=== PATIENT | male | born 1955 ===

== ENCOUNTER 2017-09-09 19:45 | Emergency (ER) | payer OTHER ==
--- NOTE | 2017-09-09 20:18 | ER ---
Nurse's Notes [facility] Name: Cuco Ely Age: 61 yrs Sex: Male : 1955 Arrival Date: 09/09/2017 Time: 19:48 Bed 3 Private MD: Diagnosis: Cardiorespiratory Arrest. on arrival Presentation: 09/09 19:49 Presenting complaint: EMS states: Pt was sitting at dinner, longterm staff reported tl2 pt's face turned blue and pt became unresponsive. CPR was started by staff at 1910, EMS arrived at 1919. EMS intubated pt and continued CPR, pt was asystole upon arrival to ER. Care prior to arrival: Oral intubation, CPR via thumper and is still in progress Medication(s) given: 4 rounds of epi and 1 round of bicarb IV initiated. 20 GA, in the left antecubital area, Glucose check: 153. Compressions began at 19:10. 19:49 Method Of Arrival: EMS: [facility] tl2 19:49 Acuity: LINDA 1 tl2 20:00 Transition of care: patient was received from another setting of care (long-term care 2 facility), [place]. Onset of symptoms was September 09, 2017 at 19:10. Risk Assessment: Do you want to hurt yourself or someone else? Patient reports no desire to harm self or others. Initial Sepsis Screen: Does the patient meet any 2 criteria? No. Patient's initial sepsis screen is negative. Does the patient have a suspected source of infection? No. Patient's initial sepsis screen is negative. Triage Assessment: 20:00 General: Appears unresponsive. tl2 20:02 Pain: Unable to use pain scale. Patient is unresponsive. tl2 Historical: - Allergies: 19:58 No Known Allergies; tl2 - Home Meds: 19:58 Depakote 500 mg Oral TbEC 1 tab 2 times per day [Active]; fenofibrate 160 mg oral tab 1 tl2 tab once daily [Active]; Haloperidol 5 mg Oral 2 times per day [Active]; levothyroxine 25 mcg tab 1 tab once daily [Active]; memantine 10 mg oral tab 1 tab daily [Active]; quetiapine 300 mg oral tab 1 tab once daily [Active]; rivastigmine tartrate 4.5 mg oral cap patch every 24 hours [Active]; - PMHx: 19:58 Schizophrenia; Hyperlipidemia; Hypothyroidism; vascular dementia; Depression; tl2 Hypertension; - Immunization history:: Adult Immunizations up to date. - Code Status:: Full code. - Ebola Screening: : No symptoms or risks identified at this time. - Social history:: Smoking status: unknown. Screenin:58 Abuse screen: Denies threats or abuse. Nutritional screening: No deficits noted. tl2 Tuberculosis screening: No symptoms or risk factors identified. Fall risk At risk due to immobility. 20:01 Fall Risk IV access (20 points). tl2 Assessment: 19:49 CPR assessment: unresponsive, pupils fixed \T\ dilated, no respiratory effort, intubated, tl2 Ambu ventilation, cyanotic. Cardiac rhythm is asystole. General: Behavior is unresponsive. Neuro: Level of Consciousness is unresponsive, Pupils are fixed, dilated. Respiratory:. Derm: Skin is cyanotic from chest up to face. 20:05 Reassessment: [employer] contacted, spoke to youwho coordinator Sofia White. Case ID . 20:10 Reassessment: Family arrived at ER and notified per physician of pt . ea 20:18 Reassessment: Customer Service Assistant contacted reported to contact [facility] attending for ea signature of certificate. 20:25 Reassessment: Dr. Hicks contacted by Amber GUTIERREZ at [phone] agrees to sign ea certificate and will notify patients PCP Dr. Delarosa. Amber GUTIERREZ contacted manager relocation mortgage accounting clerk with information. 20:29 Reassessment: Spoke with Dr Hicks who is manager relocation for [place] [phone] who states fc that they will sign cert for pt. Explained to her what happened to patient. Then I notified judge Mendez about private PCP signing cert. 21:37 Reassessment: [facility] contacted at [phone] for pt ak1 transport per family request. 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 Vital Signs: 20:01 BP 0 / ???; Pulse 0; Resp 0; Weight 81.65 kg; Height 5 ft. 7 in. (170.18 cm); tl2 20:01 Body Mass Index 28.19 (81.65 kg, 170.18 cm) tl2 ED Course: 19:48 Patient arrived in ED. rg2 19:48 Dell Sofia MD is Attending Physician. pkl 19:51 Irma Sanchez, RN is Primary Nurse. ea 19:51 Triage completed. tl2 19:58 Patient has correct armband on for positive identification. Bed in low position. tl2 Intubation: 7.5 Fr. ETT placed orally. Ventilated with Ambu bag. Maintain EMS IV. Dressing intact. Site clean \T\ dry. Gauge \T\ site: 20 g L AC. 20:00 No provider procedures requiring assistance completed. tl2 20:02 [address] tubes remain in place. tl2 20:02 Arm band placed on right wrist. tl2 20:17 Dell Sofia MD is Pronouncing Provider. pkl Administered Medications: No medications were administered Outcome: 19:58 Outcome Patient tl2 19:58 Patient : Time of 19:45 Pronounced by Dell Sofia MD 19:58 Condition: 22:34 Patient left the ED. ak1 Signatures: Andrés Kendall rg2 Dell Sofia MD MD pkl Chretien, Felicia RN Kandace Schwartz RN RN ak1 Lizzy Moss, RN RN 2 Irma Sanchez, MATT GUTIERREZ ea
--- NOTE | 2017-09-09 20:18 | EDPHYS ---
Physician Documentation [facility] Name: Cuco Ely Age: 61 yrs Sex: Male : 1955 Arrival Date: 09/09/2017 Time: 19:48 Bed 3 Private MD: ED Physician Dell Sofia HPI: 09/09 19:49 This 61 yrs old Unknown Male presents to ER via Unassigned with unknown complaint. pkl 19:49 Preceding the arrest, the [facility] collapsed. [facility] pkl Pre-hospital course: The arrest was witnessed by [facility]iary staff. Bystanders at the scene performed CPR. Patient was at dining room table and [facility]iary staff noted face turned cyanotic and then patient collapsed with no vital signs. CPR initiated by [facility]iary staff. EMS arrived at scene about 10 mins. and noted patient had no vital signs and cyanotic from chest upwards. CPR continued and patient transported to ER. Historical: - Allergies: 19:58 No Known Allergies; tl2 - Home Meds: 19:58 Depakote 500 mg Oral TbEC 1 tab 2 times per day [Active]; fenofibrate 160 mg oral tab 1 tl2 tab once daily [Active]; Haloperidol 5 mg Oral 2 times per day [Active]; levothyroxine 25 mcg tab 1 tab once daily [Active]; memantine 10 mg oral tab 1 tab daily [Active]; quetiapine 300 mg oral tab 1 tab once daily [Active]; rivastigmine tartrate 4.5 mg oral cap patch every 24 hours [Active]; - PMHx: 19:58 Schizophrenia; Hyperlipidemia; Hypothyroidism; vascular dementia; Depression; tl2 Hypertension; - Immunization history:: Adult Immunizations up to date. - Code Status:: Full code. - Ebola Screening: : No symptoms or risks identified at this time. - Social history:: Smoking status: unknown. ROS: 20:01 Unable to obtain ROS due to comatose state, patient is on ventilator. pkl Exam: 20:01 Constitutional: The patient appears comatose. pkl 20:01 Head/face: Noted is cyanotic. 20:01 Eyes: Pupils: are fixed and dilated. 20:01 ENT: Exam is negative for acute changes. 20:01 Neck: cyanotic. 20:01 Chest/axilla: Inspection: cyanotic. 20:01 Cardiovascular: Rhythm: asystole, Pulses: not palpable. 20:01 Respiratory: patient ventilated. 20:01 Abdomen/GI: Exam negative for acute changes. 20:01 Back: Exam negative for acute changes. 20:01 : Exam negative for acute changes. 20:01 Musculoskeletal/extremity: Exam is negative for acute changes. 20:01 Skin: cyanotic from chest upwarws. Vital Signs: 20:01 BP 0 / ???; Pulse 0; Resp 0; Weight 81.65 kg; Height 5 ft. 7 in. (170.18 cm); tl2 20:01 Body Mass Index 28.19 (81.65 kg, 170.18 cm) tl2 MDM: 19:48 Patient medically screened. pkl 20:01 Data reviewed: vital signs, nurses notes. ED course: Patient pronounced at 1945. pkl Administered Medications: No medications were administered Disposition: 20:01 . pkl Disposition: Patient pronounced on 09/09/17 19:45 by Dell Sofia. Impression: Cardiorespiratory Arrest. on arrival. Signatures: Dell Sofia MD MD pkl Kandace Rangel RN RN ak1 Lizzy Moss RN RN tl2 Corrections: (The following items were deleted from the chart) 20:02 19:49 Constitutional: Negative for fever, chills, and weight loss, pkl pkl 22:34 20:17 09/09/2017 20:17 Patient pronounced on 09/09/2017 at 19:45 by Dell Sofia. ak1 Impression: Cardiorespiratory Arrest. on arrival. pkl
== END 2017-09-09 22:34 ==
LOC: ER 19:45
DX: I46.9 Cardiac arrest, cause unspecified (principal); E78.5 Hyperlipidemia, unspecified; E03.9 Hypothyroidism, unspecified; I10 Essential (primary) hypertension
CPT/HCPCS: 31500; 92950; 99285